=== PATIENT | female | born 1940 | race Caucasian/White ===

== ENCOUNTER → 2018-09-17 14:34 | Emergency (ER) | payer MEDICARE ==
[~2018-09-17 14:34] MED LIST: Magnesium CITRATE* 300 ML BTL ONE; Magnesium CITRATE* 300 ML BTL PO ONE; Sodium Phosphate ADULT ENEMA* 118 ml bottle ONE; Sodium Phosphate ADULT ENEMA* 118 ml bottle PR ONE
--- NOTE | 2018-09-17 17:47 | ED ---
Abdominal Pain/Female - HPI Summary HPI Summary: This patient is a 77 year old F presenting to [facility] with a chief complaint of ABD cramping for the last 10 days. The patient rates the pain 10/10 in severity. Symptoms alleviated by nothing. Patient reports inability to make BM. Patient denies vomiting. She is able to pass gas. Hx of IBS took Imodium 10 days ago, sx since. She has been taking laxative, Senna without relief. - History of Current Complaint Chief Complaint: EDAbdPain Stated Complaint: ABDOMINAL CRAMPS Time Seen by Provider: 09/17/18 17:01 Hx Obtained From: Patient Onset/Duration: Lasting Days - 10, Still Present Timing: Days - 10 Severity Initially: Mild Severity Currently: Severe Pain Intensity: 10 Pain Scale Used: 0-10 Numeric Location: Diffuse Radiates: No Character: Cramping Alleviating Factor(s): Nothing Associated Signs and Symptoms: Positive: Other: - inability to make BM. Negative: Fever, Vomiting Allergies/Adverse Reactions: Allergies Allergy/AdvReac Type Severity Reaction Status Date / Time MS Clarithromycin Allergy Wheezing Verified 09/17/18 14:35 [From Biaxin] MS Ramipril [From Altace] Allergy Difficulty Verified 09/17/18 14:35 Breathing PMH/Surg Hx/FS Hx/Imm Hx Endocrine/Hematology History: Denies: Hx Diabetes Cardiovascular History: Reports: Hx Hypertension - ON MEDICATION FOR, Other Cardiovascular Problems/Disorders - ARTERIAL PREMATURE CONTRACTIONS Denies: Hx Pacemaker/ICD Respiratory History: Denies: Hx Asthma History: Reports: Other Problems/Disorders - URINARY FREQUENCY Musculoskeletal History: Reports: Hx Arthritis - KNEES AND BACK Sensory History: Reports: Hx Cataracts, Hx Contacts or Glasses - READING Denies: Hx Hearing Aid Opthamlomology History: Reports: Hx Cataracts, Hx Contacts or Glasses - READING Psychiatric History: Reports: Hx Depression - ON MEDS Denies: Hx Panic Disorder - Cancer History Hx Chemotherapy: No Hx Radiation Therapy: No - Surgical History Surgery Procedure, Year, and Place: BLADDER SURGERY FOR INCONTINENCE. COLONOSCOPY. LEFT WRIST SURGERY- [facility] [place] Hx Anesthesia Reactions: No - Immunization History Immunizations Up to Date: Yes Infectious Disease History: No Infectious Disease History: Denies: Traveled Outside the [place] in Last 30 Days - Family History Known Family History: Negative: Respiratory Disease, Seizure Disorder - Social History Alcohol Use: None Substance Use Type: Reports: None Smoking Status (MU): Never Smoked Tobacco Review of Systems Negative: Fever, Chills Negative: Erythema Negative: Sore Throat Negative: Chest Pain Negative: Shortness Of Breath, Cough Gastrointestinal: Other - cannot make BM Positive: Abdominal Pain. Negative: Vomiting, Nausea Negative: dysuria, hematuria Negative: Myalgia, Edema Negative: Rash Neurological: Negative - dizziness All Other Systems Reviewed And Are Negative: Yes Physical Exam - Summary Physical Exam Summary: Constitutional: Well-developed, Well-nourished, Alert. (-) Distressed Skin: Warm, Dry HENT: Normocephalic; Atraumatic Eyes: Conjunctiva normal Neck: Musculoskeletal ROM normal neck. (-) JVD, (-) Stridor, (-) Tracheal deviation Cardio: Rhythm regular, rate normal, Heart sounds normal; Intact distal pulses; The pedal pulses are 2+ and symmetric. Radial pulses are 2+ and symmetric. (-) Murmur Pulmonary/Chest wall: Effort normal. (-) Respiratory distress, (-) Wheezes, (-) Rales Abd: Soft, (-) epigastric tenderness, (-) Distension, (-) Guarding, (-) Rebound Musculoskeletal: (-) Edema Lymph: (-) Cervical adenopathy Neuro: Alert, Oriented x3 Psych: Mood and affect Normal Triage Information Reviewed: Yes Vital Signs On Initial Exam: Initial Vitals Temp Pulse Resp BP Pulse Ox 98.2 F 84 20 176/70 97 09/17/18 14:35 09/17/18 14:35 09/17/18 14:35 09/17/18 14:35 09/17/18 14:35 Vital Signs Reviewed: Yes Diagnostics - Vital Signs Vital Signs Temp Pulse Resp BP Pulse Ox 09/17/18 16:33 91 09/17/18 16:29 82 22 146/61 87 09/17/18 14:35 98.2 F 84 20 176/70 97 - Laboratory Lab Statement: Any lab studies that have been ordered have been reviewed, and results considered in the medical decision making process. Abdominal Pain Fem Course/Dx - Course Course Of Treatment: This patient is a 77 year old F presenting to [facility] with a chief complaint of ABD cramping for the last 10 days. The patient rates the pain 10/10 in severity. Symptoms alleviated by nothing. Patient reports inability to make BM. Patient denies vomiting. She is able to pass gas. Hx of IBS took Imodium 10 days ago, sx since. She has been taking laxative, Senna without relief. There is no signs of bowel obstruction. Dx constipation. Patient will be discharged with and follow up from PCP. The patient is agreeable with this plan. - Diagnoses Provider Diagnoses: Constipation Discharge - Sign-Out/Discharge Documenting (check all that apply): Patient Departure - Discharge Plan Condition: Stable Disposition: HOME Patient Education Materials: Constipation (ED), High Fiber Diet (ED) Referrals: Davis Middleton MD [Primary Care Provider] - 2 Days ( ) Additional Instructions: RETURN TO THE EMERGENCY DEPARTMENT FOR CHANGING OR WORSENING SYMPTOMS - Attestation Statements Document Initiated by Scribe: Yes Documenting Scribe: Angel Hodge Provider For Whom Scribe is Documenting (Include Credential): Bert Carey MD Scribe Attestation: Angel Mckeon, scribed for Bert Carey MD on 09/17/18 at 1753.
[2018-09-17 18:09] VITALS: BP 159/78
== END | disposition home or self-care (01) ==
LOC: ED 14:34
DX: K59.00 Constipation, unspecified (principal); I10 Essential (primary) hypertension; F32.9 Major depressive disorder, single episode, unspecified; I49.1 Atrial premature depolarization
CPT/HCPCS: 99282; A9270-GY

== ENCOUNTER 2019-02-21 04:50 | Emergency (ER) | payer MEDICARE ==
[2019-02-21] MEDS ORDERED: Cocaine 4% TOPICAL* 4 ML TOP.SOLN LEFT NARE ONE (05:15)
--- NOTE | 2019-02-21 05:19 | ED ---
Throat Pain/Nasal Congestion - HPI Summary HPI Summary: This patient is a 78 year old F presenting to [facility] with a chief complaint of epistaxis when she blows her nose for the past two weeks that has significantly worsened today with more blood. She reports bleeding from the left nostril. Patient has no other complaints at this time. - History of Current Complaint Chief Complaint: EDEpistaxis Time Seen by Provider: 02/21/19 05:11 Hx Obtained From: Patient Onset/Duration: Lasting Weeks, Worse Since - today Severity: Mild Cough: None - Allergies/Home Medications Allergies/Adverse Reactions: Allergies Allergy/AdvReac Type Severity Reaction Status Date / Time clarithromycin Allergy Severe Wheezing Verified 02/21/19 05:00 ramipril Allergy Severe Difficulty Verified 02/21/19 05:00 Breathing Home Medications: Home Medications Atenolol TAB* [Tenormin TAB* 50 MG] 100 mg PO BEDTIME 02/21/19 [History Confirmed 02/21/19] Atorvastatin* 10 mg PO DAILY 02/21/19 [History Confirmed 02/21/19] Oxybutynin TAB* [Ditropan TAB*] 5 mg PO DAILY 02/21/19 [History Confirmed ] glipiZIDE TAB* [Glucotrol TAB*] 5 mg PO DAILY 02/21/19 [History Confirmed ] PMH/Surg Hx/FS Hx/Imm Hx Endocrine/Hematology History: Denies: Hx Diabetes Cardiovascular History: Reports: Hx Hypertension - ON MEDICATION FOR, Other Cardiovascular Problems/Disorders - ARTERIAL PREMATURE CONTRACTIONS Denies: Hx Pacemaker/ICD Respiratory History: Denies: Hx Asthma History: Reports: Other Problems/Disorders - URINARY FREQUENCY Musculoskeletal History: Reports: Hx Arthritis - KNEES AND BACK Sensory History: Reports: Hx Cataracts, Hx Contacts or Glasses - READING Denies: Hx Hearing Aid Opthamlomology History: Reports: Hx Cataracts, Hx Contacts or Glasses - READING Psychiatric History: Reports: Hx Depression - ON MEDS Denies: Hx Panic Disorder - Cancer History Hx Chemotherapy: No Hx Radiation Therapy: No - Surgical History Surgery Procedure, Year, and Place: BLADDER SURGERY FOR INCONTINENCE. COLONOSCOPY. LEFT WRIST SURGERY- [facility] Hx Anesthesia Reactions: No Infectious Disease History: No Infectious Disease History: Denies: Traveled Outside the [place] in Last 30 Days - Family History Known Family History: Negative: Respiratory Disease, Seizure Disorder - Social History Alcohol Use: None Substance Use Type: Reports: None Smoking Status (MU): Never Smoked Tobacco Review of Systems Constitutional: Negative Positive: Epistaxis All Other Systems Reviewed And Are Negative: Yes Physical Exam - Summary Physical Exam Summary: Appearance: Well-appearing, Well-nourished, lying in bed comfortable Skin: Warm, dry, no obvious rash Eyes: sclera anicteric, no conjunctival pallor ENT: mucous membranes moist, fresh clots in left nare but no active bleeding Neck: deferred Respiratory: No signs of respiratory distress Cardiovascular: Appears well perfused, pulses are nml Abdomen: deferred Musculoskeletal: Moving all 4 extremities without obvious discomfort Neurological: Awake and alert, mentation is normal, speech is fluent and appropriate Psychiatric: affect is normal, does not appear anxious or depressed Triage Information Reviewed: Yes Vital Signs On Initial Exam: Initial Vitals Temp Pulse Resp BP Pulse Ox 97.7 F 68 15 182/78 95 02/21/19 04:57 02/21/19 04:57 02/21/19 04:57 02/21/19 04:57 02/21/19 04:57 Vital Signs Reviewed: Yes Procedures - Procedure Summary Procedure Summary: The left nare was cleared of clots by blowing the nose. It was then packed with cocaine soaked cotton ball. A possible source of the bleeding was identified on the anterior septum and cauterized with silver nitrate. Diagnostics - Vital Signs Vital Signs Temp Pulse Resp BP Pulse Ox 02/21/19 04:57 97.7 F 68 15 182/78 95 - Laboratory Lab Statement: Any lab studies that have been ordered have been reviewed, and results considered in the medical decision making process. EENT Course/Dx - Course Course Of Treatment: 78 year old F presenting with epistaxis when she blows her nose for the past two weeks that has significantly worsened today with more blood. She reports bleeding from the left nostril.Fresh clots in left nare visualized but no active bleeding. The left nare was cleared of clots by blowing the nose. It was then packed with cocaine soaked cotton ball. A possible source of the bleeding was identified on the anterior septum and cauterized with silver nitrate. Patient is instructed to avoid blowing nose and to not take her ASA for three days. Instructed to follow up with Dr. Bae if bleeding occurs. - Diagnoses Provider Diagnoses: Acute anterior epistaxis Discharge - Sign-Out/Discharge Documenting (check all that apply): Patient Departure - discharge Patient Received Moderate/Deep Sedation with Procedure: No - Discharge Plan Condition: Good Disposition: HOME Patient Education Materials: Nosebleed (ED) Referrals: Marty Bae MD [Medical Doctor] - Additional Instructions: If the bleeding persists despite what I did tonight, you should see Dr. Bae in the office so he can find the source of the bleeding and take care of it. Hold your aspirin for the next 3 days to allow healing, and try not to blow your nose, at least on the left side. - Billing Disposition and Condition Condition: GOOD Disposition: Home - Attestation Statements Document Initiated by Ismael: Yes Documenting Scribe: Anabela Cordoba Provider For Whom Ismael is Documenting (Include Credential): Vijay Schneider MD Scribe Attestation: Anabela Mckeon, scribed for Vijay Schneider MD on 02/24/19 at 1841. Scribe Documentation Reviewed: Yes Provider Attestation: The documentation as recorded by the Anabela sandy accurately reflects the service I personally performed and the decisions made by me, Vijay Schneider MD Status of Scribe Document: Viewed
[2019-02-21] MEDS ORDERED: Silver Nitrate/Potassium Nitr* 1 EA STICK ONE (05:52)
[2019-02-21 06:16] VITALS: BP 166/72
== END 2019-02-21 06:23 | disposition home or self-care (01) ==
LOC: ED 04:50
DX: R04.0 Epistaxis (principal); I10 Essential (primary) hypertension; Z88.1 Allergy status to other antibiotic agents; Z88.8 Allergy status to other drugs, medicaments and biological substances; F32.9 Major depressive disorder, single episode, unspecified
CPT/HCPCS: 30901; 99282; A9270-GY

== ENCOUNTER 2019-09-21 15:44 | Emergency (ER) | payer MEDICARE ==
--- OUTSIDE RECORDS SUMMARY | 2019-09-21 16:50 | XMS REPORT | Continuity of Care Document ---
:1940 External Reference #:[id number] Author Name Davis Middleton M.D. Address [address] [place] [address] Care Team Providers Name Role Phone Mat Haney - Ophthalmology Care Team Information Resource Coordinator [facility] [place] - Diagnostic Care Team Information Resource Coordinator Radiology [facility] Pre-Admission Testing - Care Team Information Resource Coordinator [phone] Clinic/Center Problems Active Problems Provider Date Hyperlipidemia Davis Middleton M.D. Onset: 01/06/2012 Obesity Davis Middleton M.D. Onset: 01/06/2012 Depressive disorder Davis Middleton M.D. Onset: 01/15/2013 Palpitations Davis Middleton M.D. Onset: 01/20/2015 Arthropathy Davis Middleton M.D. Onset: 01/20/2015 Essential hypertension Davis Middleton M.D. Onset: 01/22/2016 Type 2 diabetes mellitus Davis Middleton M.D. Onset: 11/04/2016 Mixed urinary incontinence Davis Middleton M.D. Onset: 12/07/2018 Edema Davis Middleton M.D. Onset: 03/15/2019 Social History Type Date Description Comments Sex Unknown Tobacco Use Start: Unknown Never Smoked Cigarettes ETOH Use Denies alcohol use Tobacco Use Start: Unknown Patient has never smoked Allergies, Adverse Reactions, Alerts Active Allergies Reaction Severity Comments Date Biaxin interaction with lipitor wheezing, couldnt 03/05/2011 and citalopram, also breathe allergic rx?, wheezing. couldn't breath. Azithromycin OK. Medications Active Medications SIG Qnty Indications Ordering Date Provider Verapamil HCL ER Take 1 capsule by 90caps Davis Stewart 07/26/2019 360mg mouth daily for Dima Middleton Caps ER 24HR high blood pressure Atenolol take 1 tablet by 90tabs Davis FCheryle 07/26/2019 100mg Tablets mouth every Dima Middleton morning Triamterene/Hydrochlo 2 po qd 180caps Davis F. 04/23/2019 rothiazide Dima Middleton 37.5-25mg Capsules Oxybutynin Chloride Take 1 Tablet By 30tabs Jelani De Paz, 12/07/2018 ER Mouth Every Day Dima 5mg Tablets ER 24HR as Needed Atorvastatin Calcium Take 1 Tablet By 90tabs Davis F. 01/14/2018 Mouth AT Bedtime Dima Middleton 10mg Tablets Glipizide ER Take 1 Tablet By 90tabs Davis F. 11/03/2017 2.5mg Mouth Every Day Dima Middleton Tablets ER 24HR Nystatin use as directed 30gm Kalyani Connell, 07/28/2017 190011Hadi/GM twice a day as Dima Cream needed Citalopram 1 PO qd 90tabs Davis F. 03/18/2008 Hydrobromide Dima Middleton 20mg Tablets Verapamil Sustained 1 by mouth every 90caps Davis FCheryle 09/27/2007 Release day Dima Middleton 360mg Capsules Atenolol 1 by mouth every 90caps Davis F. 05/16/2006 100mg Capsules day Dima Middleton Cozaar Take 1 Tablet By 90tabs Davis FCheryle 02/20/2006 50mg Tablets Mouth Every Day Dima Middleton Zyprexa 1 PO qd Davis FCheryle 05/25/2002 5mg Dima Middleton Calcium-Vitamin D 1 po qd Davis FCehryle Dima Middleton 500-125 Tablets Aspirin 1 po qd Davis F. 81mg Tablets DR Kane M.D. History Medications Lubricant Eye Drops Instill 2 drops 15ml Davis FCheryle Middleton, 03/15/2019 - into affected eye Dima 07/26/2019 0.4-0.3% Solution hourly as needed Immunizations CPT Code Status Date Vaccine Lot # [id number] Given 08/06/2018 High-Dose, Influenza Virus Vacccine-fluzone 65 and older [id number] Given 07/22/2016 Zostivax 92222 Given 07/22/2016 High-Dose, Influenza Virus Vacccine-fluzone 65 and older 92376 Given 09/14/2015 High-Dose, Influenza Virus Vacccine-fluzone 65 and older 92770 Given 07/24/2015 Pneumococcal Conjugate Vacc-13 [id number] 86324 Given 08/20/2012 High-Dose, Influenza Virus Vacccine-fluzone 65 [id number] and older 97394 Given 07/13/2012 Tdap Tetanus, W Pertussis [id number] 23422 Given 09/08/2010 DO Not Use Split Influenza Virus Vaccine [id number] 05607 Given 12/16/2008 Pneumococcal Immunization [id number] 23346 Given 02/17/2007 Tetanus And Diptheria Adult Preservative Free [id number] >7Yrs 04303 Given 10/02/2006 DO Not Use Split Influenza Virus Vaccine 65923 Given 10/10/2004 DO Not Use Split Influenza Virus Vaccine 74625 Given 10/01/1998 Pneumococcal Immunization Vital Signs Date Vital Result Comment 07/26/2019 3:13pm BP Systolic 120 mmHg BP Diastolic 70 mmHg Heart Rate 70 /min Body Temperature 98.2 F Height 63 inches 5'3" Weight 233.00 lb BMI (Body Mass Index) 41.3 kg/m2 03/15/2019 9:55am BP Systolic 132 mmHg BP Diastolic 64 mmHg Heart Rate 76 /min Body Temperature 97.9 F Respiratory Rate 18 /min Height 63 inches 5'3" Weight 239.00 lb BMI (Body Mass Index) 42.3 kg/m2 Results Test Date Facility Test Result H/L Range Note Laboratory test 07/26/2019 [facility](a) TSH <pending> 0.5-5.0 finding Laboratory test 07/26/2019 [facility] Hemoglobin A1c 7.1 % % High 4.1-5.7 finding (607)- - (Fma) Laboratory test 03/15/2019 [facility] Hemoglobin A1c 7.6 % High 4.1- 5.7 finding (607)- - (Fma) CBC Manual 03/15/2019 [facility] WBC 7.77 4.0-10.0 Diff-Fma (607)- - RBC 4.32 3.93-6.0 Hemoglobin (Fma/CMC/CTX) 13.2 g/dL 12.0-17.0 Hematocrit (Fma/CMC/CTX) 39.4 % 35.0-50.0 Mean Corpuscular Vol 91.2 fL 80-95 Mean Corpuscular Hemoglobin 30.6 pg 25.6-32.2 Mean Corpuscular Hemo Concen 33.5 g/dL 32.2-36.0 Platelets 155 10^3/ul Low 163-400 RDW 13.8 High 11.6-13.7 Mean Platelet Volume 11.5 fL 8.0-12.4 Neutrophil % 55 % 34.0-70.0 Band Neutrophil 5 % 1-7 Lymph% 35 % 20.0-52.0 Monocytes % 4 % Low 5.0-12.0 Eos % 1 % 0.7-7.0 Comment rbc/plts normal Comprehensive Metabolic 03/15/2019 [facility](a) Sodium 142 mEq/L 134-149 Prof Potassium 4.4 mEq/L 3.6-5.5 Chloride 102 mEq/L 94-112 Carbon Dioxide 23 mEq/L 21-32 Glucose 165 mg/dL High 70-105 1 BUN 18 mg/dL 6-26 Creatinine 0.7 mg/dL 0.6-1.4 BUN/Creat Ratio 25.7 CALC 8.0-36.0 Calcium 9.7 mg/dL 8.6-10.2 Total Protein 7.5 g/dL 6.4-8.3 Albumin 4.7 g/dL 3.8-5.5 Globulin 2.8 g/dL 2.0-4.8 A/G Ratio 1.7 CALC 0.6-2.3 Alk. Phosphatase 55 U/L 30-110 Alt (SGPT) 49 U/L High 7-35 Ast (Sgot) 58 U/L High 5-34 Total Bilirubin 0.3 mg/dL 0.2-1.3 GFR Non- >60 ml/min/1.73m^ >=60 GFR >60 ml/min/1.73m^ >=60 Lipid Profile 03/15/2019 Niraj Dawkins(a) Cholesterol 168 mg/dL 120- 200 Triglycerides 138 mg/dL 30-200 HDL Cholesterol 48 mg/dL 30-85 LDL (Calculated) 92 CALC 0-129 VLDL Cholesterol 28 mg/dL 0-50 HDL Risk Factor 3.5 CALC 0.0-4.4 Laboratory test 03/15/2019 Niraj Dawkins(fma) Free T4 0.81 ng/dL 0.75- 1.54 finding TSH 1.59 mIU/L 0.50-6.00 1 NON-FASTING Procedures Date Code Description Status 08/12/2018 [id number] Mammogram Completed 09/08/2017 [id number] Bone Mineral Density Test Completed 08/11/2017 [id number] Mammogram Completed 08/01/2016 [id number] Mammogram Completed 07/31/2015 [id number] Mammogram Completed 07/29/2014 [id number] Mammogram Completed 02/14/2014 [id number] Colonoscopy Completed 07/28/2013 [id number] Mammogram Completed 07/21/2012 [id number] Mammogram Completed 06/27/2011 [id number] Mammogram Completed 05/17/2009 [id number] Mammogram Completed 02/13/2009 [id number] Colonoscopy Completed 03/28/2008 [id number] Mammogram Completed 03/02/2007 [id number] Mammogram Completed 09/16/2001 [id number] Colonoscopy Completed Medical Devices Description No Information Available Encounters Type Date Location Provider Dx Diagnosis Office Visit 03/15/2019 [facility] Office Davis Stewart E11.9 Type 2 diabetes 9:50a Dima Middleton mellitus without complications E66.8 Other obesity R60.0 Localized edema I10 Essential (primary) hypertension D69.6 Thrombocytopenia, unspecified Assessments Date Code Description Provider 07/26/2019 E11.9 Type 2 diabetes mellitus without Davis Middleton M.D. complications 07/26/2019 I10 Essential (primary) hypertension Davis Middleton M.D. 07/26/2019 F32.89 Other specified depressive episodes Davis Middleton M.D. 07/26/2019 R60.0 Localized edema Davis Middleton M.D. 03/15/2019 E11.9 Type 2 diabetes mellitus without Davis Middleton M.D. complications 03/15/2019 E66.8 Other obesity Davis Middleton M.D. 03/15/2019 R60.0 Localized edema Davis Middleton M.D. 03/15/2019 I10 Essential (primary) hypertension Davis Middleton M.D. 03/15/2019 D69.6 Thrombocytopenia, unspecified Davis Middleton M.D. Plan of Treatment Future Appointment(s):01/10/2020 2:00 pm - Davis Middleton M.D. at [facility] [id number]/26/2019 - Davis Middleton M.D.E11.9 Type 2 diabetes mellitus without complicationsNew Labs:Microalb, Random (Fma/CMC/CTX), Ordered: 07/26/19Comments: We reviewed her hemoglobin A1c values over time, we'll continue present dose of [id number] Essential (primary) hypertensionComments:Blood pressure well controlled on present mjunpndxiaI81.89 Other specified depressive episodesComments:continue care with mental health , and continue Zyprexa and sqaugbmaylB51.0 Localized edemaAllNew Medication:Verapamil HCL ER 360 mg - Take 1 capsule by mouth daily for high blood pressureAtenolol 100 mg - take 1 tablet by mouth every morningComments:Medication Management Patient Understands medications she's taking? Yes No Are there Barriers to Adherence? Yes No Has the patient been asked about herbal supplements and therapies, and OTC meds? Yes NoFollow up:return for follow up in 6 months for complete physical Functional Status Description No Information Available Mental Status Description No Information Available Referrals Refer to Dr Reason for Referral Status Appt Date Mat Haney Diabetes Mellitus and Dry Eye' jw Scheduled 06/21/[address] [facility] [id number] [phone] [facility] right knee pain jw Scheduled 04/21/2019 [address] [place] [address] [phone]
--- OUTSIDE RECORDS SUMMARY | 2019-09-21 16:50 | XMS REPORT | Continuity of Care Document ---
:1940 External Reference #:[id number] Author Name Howie Stephenson, OD Address [address] [place] [address] Care Team Providers Name Role Phone Davis Middleton MD - Computer Hardware Engineer Care Team Information Principal Librarian [phone] Problems Active Problems Provider Date Presbyopia Howie Yanes O.D. 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 Onset: 08/30/2014 Lens Replaced By Other Means Howie Yanes O.D. Onset: 08/30/2014 Tear film insufficiency Howie Yanes O.D. Onset: 08/30/2014 Nuclear senile cataract Mat Haney M.D. Onset: 06/16/2014 Type 2 diabetes mellitus Onset: 03/03/2017 Social History Type Date Description Comments Sex Unknown ETOH Use Never used alcohol Tobacco Use Start: Unknown Patient has never smoked Smoking Status Reviewed: 07/29/19 Patient has never smoked Allergies, Adverse Reactions, Alerts Description No Known Drug Allergies Medications Active Medications SIG Qnty Indications Ordering Date Provider Aspir-81 once per day by Unknown 81mg Tablets mouth DR Losartan Potassium Unknown Tablets Zyprexa Unknown Tablets Atenolol Unknown Tablets Triamterene/Hydrochlo Unknown rothiazide 37.5-25mg Capsules Olanzapine Unknown 5mg Tablets Citalopram Unknown Hydrobromide 20mg Tablets Verapamil HCL ER Unknown 360mg Caps ER 24HR Atorvastatin Calcium Unknown 10mg Tablets Fluzone To Be Administered Unknown 2013-14 By Pharmacist For Injection Immunization Metformin HCL ER Davis Middleton, 500mg MD Tablets ER 24HR Immunizations Description No Information Available Vital Signs Date Vital Result Comment 06/21/2019 3:06pm Intraocular Pressure Right Eye 13 mmHg Intraocular Pressure Left Eye 13 mmHg 06/11/2018 3:33pm Intraocular Pressure Right Eye 13 mmHg Intraocular Pressure Left Eye 13 mmHg Results Description No Information Available Procedures Date Code Description Status 07/16/2019 90204 Remove Secondary Cataract, Laser (Yag) Completed 06/21/2019 64080 Eye Exam Est Intermediate Completed Medical Devices Description No Information Available Encounters Description No Information Available Assessments Date Code Description Provider 07/29/2019 Z96.1 Presence of intraocular lens Howie Stephenson, OD 07/16/2019 H26.491 Other secondary cataract, right eye Mat Haney M.D. 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
--- NOTE | 2019-09-21 19:07 | ED ---
Psychiatric Complaint - HPI Summary HPI Summary: Pt is a 78 y/o F presenting to the ED with a chief complaint of feeling down. She states she feels much less motivated in comparison to normal, and is very sad. She was supposed to go to [place] last week to visit her daughter, but she could not bring herself to go. She denies SI/HI/hallucinations or decreased appetite. - History Of Current Complaint Chief Complaint: EDMentalHealth Time Seen by Provider: 09/21/19 18:34 Hx Obtained From: Patient Onset/Duration: Gradual Onset, Lasting Days, Still Present Timing: Days Severity Initially: Moderate Severity Currently: Moderate Character: Depressed Aggravating Factor(s): Nothing Alleviating Factor(s): Nothing Associated Signs And Symptoms: Positive: Negative Has Suicidal: Denies: Thoughts Has Homicidal: Denies: Thoughts - Allergies/Home Medications Allergies/Adverse Reactions: Allergies Allergy/AdvReac Type Severity Reaction Status Date / Time clarithromycin Allergy Severe Wheezing Verified 09/21/19 16:11 ramipril Allergy Severe Difficulty Verified 09/21/19 16:11 Breathing PMH/Surg Hx/FS Hx/Imm Hx Previously Healthy: Yes Endocrine/Hematology History: Denies: Hx Diabetes Cardiovascular History: Reports: Hx Hypertension - ON MEDICATION FOR, Other Cardiovascular Problems/Disorders - ARTERIAL PREMATURE CONTRACTIONS Denies: Hx Pacemaker/ICD Respiratory History: Denies: Hx Asthma History: Reports: Other Problems/Disorders - URINARY FREQUENCY Musculoskeletal History: Reports: Hx Arthritis - KNEES AND BACK Sensory History: Reports: Hx Cataracts, Hx Contacts or Glasses - READING Denies: Hx Hearing Aid Opthamlomology History: Reports: Hx Cataracts, Hx Contacts or Glasses - READING Psychiatric History: Reports: Hx Depression - ON MEDS Denies: Hx Panic Disorder - Cancer History Hx Chemotherapy: No Hx Radiation Therapy: No - Surgical History Surgery Procedure, Year, and Place: BLADDER SURGERY FOR INCONTINENCE. COLONOSCOPY. LEFT WRIST SURGERY- [facility] [place] Hx Anesthesia Reactions: No - Immunization History Date of Influenza Vaccine: 09/09/2019 Immunizations Up to Date: Yes Infectious Disease History: No Infectious Disease History: Denies: Traveled Outside the [place] in Last 30 Days - Family History Known Family History: Negative: Respiratory Disease, Seizure Disorder - Social History Alcohol Use: None Hx Substance Use: No Substance Use Type: Reports: None Hx Tobacco Use: No Smoking Status (MU): Never Smoked Tobacco Review of Systems Negative: Other - decreased appetite Neurological: Negative - hallucinations Negative: Other - SI/HI All Other Systems Reviewed And Are Negative: Yes Physical Exam - Summary Physical Exam Summary: Constitutional: Well-developed, Well-nourished, Alert. (-) Distressed Skin: Warm, Dry HENT: Normocephalic; Atraumatic Eyes: Conjunctiva normal Neck: Musculoskeletal ROM normal neck. (-) JVD, (-) Stridor, (-) Tracheal deviation Cardio: Rhythm regular, rate normal, Heart sounds normal; Intact distal pulses; Radial pulses are 2+ and symmetric. (-) Murmur Pulmonary/Chest wall: Effort normal. (-) Respiratory distress, (-) Wheezes, (-) Rales Abd: Soft, (-) tenderness, (-) Distension, (-) Guarding, (-) Rebound Musculoskeletal: (-) Edema Lymph: (-) Cervical adenopathy Neuro: Alert, Oriented x3 Psych: Mood and affect Normal Triage Information Reviewed: Yes Vital Signs On Initial Exam: Initial Vitals Temp Pulse Resp BP Pulse Ox 97.8 F 65 20 165/82 94 09/21/19 16:06 09/21/19 16:06 09/21/19 16:06 09/21/19 16:06 09/21/19 16:06 Vital Signs Reviewed: Yes Procedures - Sedation Patient Received Moderate/Deep Sedation with Procedure: No Diagnostics - Vital Signs Vital Signs Temp Pulse Resp BP Pulse Ox 09/21/19 16:06 97.8 F 65 20 165/82 94 - Laboratory Lab Statement: Any lab studies that have been ordered have been reviewed, and results considered in the medical decision making process. Course/Dx - Course Course Of Treatment: Patient is here with worsening depressed mood over the past 2 weeks likely due to missing a trip to visit her [facility]. Patient had no reflex symptoms of depression. Patient's never had suicidal thoughts or suicidal ideation. Patient was offered to see a psychiatrist but did not want to do that. Patient really wanted her meds adjusted but was told we were not comfortable doing that here. Patient was instructed to call Dr. Silverman in the morning to try to set up a closer follow-up appointment. Patient is also encouraged to return if she had worsening depression symptoms or suicidal thoughts - Differential Dx/Clinical Impression Provider Diagnosis: Depression Discharge ED - Sign-Out/Discharge Documenting (check all that apply): Patient Departure - Discharge Plan Condition: Stable Disposition: HOME Patient Education Materials: Depression (ED) Referrals: Davis Middleton MD [Primary Care Provider] - Herrera REYES,Tammy Carrillo [Medical Doctor] - Additional Instructions: Call Dr. Wade office in the morning, say that you were seen here and recommended to see Dr. Silverman again within the next week if there are any open appointments. Come back to the emergency department with any thoughts of harming yourself or others. - Billing Disposition and Condition Condition: STABLE Disposition: Home - Attestation Statements Document Initiated by Scribe: Yes Documenting Scribe: Dayanara Alston Provider For Whom Ismael is Documenting (Include Credential): Low Suazo MD. Scribe Attestation: Dayanara Mckeon, kashmired for Low Suazo MD. on 09/21/19 at 2048. Scribe Documentation Reviewed: Yes Provider Attestation: The documentation as recorded by the [email or web address] accurately reflects the service I personally performed and the decisions made by , Low Suazo MD. Status of Scribe Document: Viewed
[2019-09-21 19:42] VITALS: BP 198/90
== END 2019-09-21 19:43 | disposition home or self-care (01) ==
LOC: ED 15:44
DX: F32.9 Major depressive disorder, single episode, unspecified (principal); I10 Essential (primary) hypertension
CPT/HCPCS: 99282

== ENCOUNTER 2021-06-09 14:20 | Inpatient (IN) ==
[2021-06-09] MEDS ORDERED: NS 0.9% 1000 ml BAG 1,000 ML IV ONE (14:26)
[2021-06-09 14:54] LABS: ABS Basophils 0.1 10^3/ul (0-0.2); ABS Eosinophils 0.1 10^3/ul (0-0.6); ABS Lymphocytes 2.6 10^3/ul (1.0-4.8); ABS Neutrophils 6.1 10^3/ul (1.5-7.7); Eosinophil % 1.1 %; Hematocrit 40 % (35-47); Hemoglobin 13.3 g/dL (12.0-16.0); Lymphocyte % 26.5 %; Mean Corpuscular HGB Conc 34 g/dL (31-36); Mean Corpuscular Hemoglobin 31 pg (27-31); Mean Corpuscular Volume 92 fL (80-97); Mean Platelet Volume 8.2 fL (7.4-10.4); Platelet Count 207 10^3/uL (150-450); Red Cell Distribution Width 14 % (10-15)
[2021-06-09 15:02] LABS: Activated Partial Thrombo Time 26.5 seconds (26.0-38.0); INR 1.07 (0.86-1.15)
[2021-06-09 15:21] LABS: Albumin 4.1 g/dL (3.2-5.2); Albumin/Globulin Ratio 1.4 (1-3); EGFR African American 57.1 (>60); EGFR Non-African American 47.2 (>60); Globulin 2.9 g/dL (2-4); HDL Cholesterol 40.9 mg/dL; Potassium 3.7 mmol/L (3.5-5.0); Total Bilirubin 0.4 mg/dL (0.2-1.0)
[2021-06-09] MEDS ORDERED: Iodixanol (CONTRAST) 320 MG/ML 100 ML SDV IV ONE (15:47)
[2021-06-09 16:01] LABS: Urine Appearance Clear; Urine Bilirubin Negative (Negative); Urine Blood Negative (Negative); Urine Color Straw; Urine Glucose Negative (Negative); Urine Ketones Negative (Negative); Urine Nitrite Negative (Negative); Urine Protein Negative (Negative); Urine Specific Gravity 1.008 (1.002-1.030); Urine Urobilinogen Negative (Negative)
[2021-06-09] MEDS ORDERED: Dextrose 50% Syringe 50 ml 25 GM/50 ML SYRINGE IV PUSH PRN (22:44)
[2021-06-10] MEDS: Heparin 5000 UNITS/ML 1 mL VIAL SUBCUT SCH ×4 (00:35→20:41)
[2021-06-10 05:07] LABS: ABS Basophils 0.1 10^3/ul (0-0.2); ABS Eosinophils 0.2 10^3/ul (0-0.6); ABS Lymphocytes 3.6 10^3/ul (1.0-4.8); ABS Monocytes 0.8 10^3/ul (0-0.8); ABS Neutrophils 4.6 10^3/ul (1.5-7.7); Eosinophil % 1.8 %; Hematocrit 37 % (35-47); Hemoglobin 12.7 g/dL (12.0-16.0); Lymphocyte % 38.5 %; Mean Corpuscular HGB Conc 34 g/dL (31-36); Mean Corpuscular Hemoglobin 31 pg (27-31); Mean Corpuscular Volume 92 fL (80-97); Mean Platelet Volume 8.1 fL (7.4-10.4); Platelet Count 182 10^3/uL (150-450); Red Blood Count 4.06 10^6 /uL (3.70-4.87); Red Cell Distribution Width 14 % (10-15); White Blood Count 9.3 10^3/uL (3.5-10.8)
[2021-06-10 05:22] LABS: Calcium 9.7 mg/dL (8.6-10.3); EGFR African American 60.9 (>60); EGFR Non-African American 50.3 (>60); HDL Cholesterol 36.3 mg/dL; Potassium 3.5 mmol/L (3.5-5.0)
[2021-06-11] MEDS: Heparin 5000 UNITS/ML 1 mL VIAL SUBCUT SCH ×3 (06:09→20:58)
[2021-06-11 06:55] LABS: ABS Basophils 0.1 10^3/ul (0-0.2); ABS Eosinophils 0.2 10^3/ul (0-0.6); ABS Lymphocytes 2.7 10^3/ul (1.0-4.8); ABS Monocytes 0.7 10^3/ul (0-0.8); ABS Neutrophils 4.1 10^3/ul (1.5-7.7); Eosinophil % 2.9 %; Hematocrit 37 % (35-47); Hemoglobin 12.9 g/dL (12.0-16.0); Lymphocyte % 34.4 %; Mean Corpuscular HGB Conc 35 g/dL (31-36); Mean Corpuscular Hemoglobin 32 pg (27-31); Mean Corpuscular Volume 91 fL (80-97); Mean Platelet Volume 8.3 fL (7.4-10.4); Nucleated Red Blood Cells % 0.1; Platelet Count 177 10^3/uL (150-450); Red Blood Count 4.08 10^6 /uL (3.70-4.87); Red Cell Distribution Width 14 % (10-15); White Blood Count 7.8 10^3/uL (3.5-10.8)
[2021-06-11 07:12] LABS: Calcium 9.7 mg/dL (8.6-10.3); EGFR African American 60.9 (>60); EGFR Non-African American 50.3 (>60); Potassium 3.7 mmol/L (3.5-5.0)
[2021-06-12] MEDS: Heparin 5000 UNITS/ML 1 mL VIAL SUBCUT SCH ×2 (05:41→13:54)
[2021-06-12 06:24] LABS: ABS Basophils 0.1 10^3/ul (0-0.2); ABS Eosinophils 0.2 10^3/ul (0-0.6); ABS Lymphocytes 2.3 10^3/ul (1.0-4.8); ABS Monocytes 0.7 10^3/ul (0-0.8); ABS Neutrophils 3.9 10^3/ul (1.5-7.7); Eosinophil % 2.5 %; Hematocrit 36 % (35-47); Hemoglobin 12.6 g/dL (12.0-16.0); Lymphocyte % 32.7 %; Mean Corpuscular HGB Conc 35 g/dL (31-36); Mean Corpuscular Hemoglobin 32 pg (27-31); Mean Corpuscular Volume 91 fL (80-97); Mean Platelet Volume 8.6 fL (7.4-10.4); Platelet Count 164 10^3/uL (150-450); Red Blood Count 3.91 10^6 /uL (3.70-4.87); Red Cell Distribution Width 14 % (10-15); White Blood Count 7.1 10^3/uL (3.5-10.8)
[2021-06-12 06:41] LABS: Calcium 9.4 mg/dL (8.6-10.3); EGFR African American 73.7 (>60); EGFR Non-African American 60.9 (>60); Potassium 3.7 mmol/L (3.5-5.0)
[2021-06-12 15:55] VITALS: BP 137/53
== END 2021-06-12 16:05 | disposition home or self-care (01) | DRG 69 ==
LOC: ED 14:20 → MEDTELE 18:38
PROVIDERS: ADMIT Internal Medicine; ATTEND Pediatrics

== ENCOUNTER 2023-10-30 17:11 | Inpatient (IN) ==
[2023-10-30 20:42] LABS: ABS Basophils 0.1 10^3/uL (0.0-0.1); ABS Eosinophils 0.1 10^3/uL (0.0-0.5); ABS Lymphocytes 3.2 10^3/uL (1.0-4.8); ABS Monocytes 0.7 10^3/uL (0.0-0.9); ABS Neutrophils 5.4 10^3/uL (1.5-7.6); ABS Nucleated RBC 0.01 10^3/ul; Eosinophil % 0.9 %; Hematocrit 35.1 % (35-45); Hemoglobin 12.1 g/dL (11.5-14.3); Lymphocyte % 33.7 %; Mean Corpuscular Hemoglobin 31.7 pg (27-33); Mean Corpuscular Hgb Conc 34.3 g/dL (31-36); Mean Corpuscular Volume 92.2 fL (80-97); Mean Platelet Volume 7.9 fL (7.5-11.2); Nucleated Red Blood Cells % 0.1 %/100WBC (0.0-0.8); Platelet Count 249 10^3/uL (150-450); Red Blood Count 3.81 10^6/uL (3.63-4.92); Red Cell Distribution Width 14.7 % (12-17); White Blood Count 9.5 10^3/uL (3.8-11.8)
[2023-10-30] MEDS ORDERED: cefTRIAXone 1 gm/50 mL D5W 1 GM/50 ML BAG IV ONE (20:53)
[2023-10-30] MEDS ORDERED: NS 0.9% 1000 ml BAG 1,000 ML IV ONE (20:53)
[2023-10-30 21:00] LABS: Albumin 3.9 g/dL (3.2-5.2); Albumin/Globulin Ratio 1.3 (1-3); C Reactive Protein 8.36 mg/L (<8.01); Calcium 10.4 mg/dL (8.6-10.3); Creatinine, Serum 1.49 mg/dL (0.51-0.95); Globulin 2.9 g/dL (2-4); Total Bilirubin 0.5 mg/dL (0.2-1.0); Total Protein 6.8 g/dL (6.4-8.9); eGFR CKD-EPI 34.4 (>60)
[2023-10-30] MEDS ORDERED: Iodixanol (CONTRAST) 320 MG/ML 100 ML SDV IV ONE (21:10)
[2023-10-30 21:22] LABS: Magnesium 1.6 mg/dL (1.9-2.7)
[2023-10-30 22:45] LABS: TSH Ultra Thyroid Stim Horm 1.42 mcIU/mL (0.34-5.60)
[2023-10-30 23:04] LABS: Urine Appearance Cloudy; Urine Bilirubin Negative (Negative); Urine Blood Negative (Negative); Urine Color Yellow; Urine Glucose Negative (Negative); Urine Ketones Negative (Negative); Urine Nitrite Negative (Negative); Urine Protein Negative (Negative); Urine Specific Gravity 1.011 (1.002-1.030); Urine Urobilinogen Negative (Negative)
[2023-10-30] MEDS ORDERED: KCL 20 MEQ/100 ML IVPREMIX 20 MEQ/100 ML BAG IV SCH (23:45)
[2023-10-30] MEDS ORDERED: Magnesium Sulfate 2 gm BAG 2 GM/50 ML BAG IVPB ONE (23:58)
[2023-10-31] MEDS: Enoxaparin 30 MG/0.3 ML SYR SUBCUT SCH ×2 (00:30→20:58)
[2023-10-31] MEDS ORDERED: Potassium Chlor 20 meq TAB.ER PO ONE ×2 (00:51→06:07)
[2023-10-31] MEDS ORDERED: NS 0.9% 1000 ml BAG 1,000 ML IV SCH ×2 (01:00→16:15)
[2023-10-31] MEDS ORDERED: Magnesium Sulfate IV 1GM/100ML 1 GM/100 ML BAG IV ONE (01:58)
[2023-10-31 05:25] LABS: ABS Basophils 0.1 10^3/uL (0.0-0.1); ABS Eosinophils 0.1 10^3/uL (0.0-0.5); ABS Lymphocytes 2.2 10^3/uL (1.0-4.8); ABS Monocytes 0.6 10^3/uL (0.0-0.9); Eosinophil % 1.4 %; Hematocrit 34.8 % (35-45); Hemoglobin 11.7 g/dL (11.5-14.3); Lymphocyte % 31.3 %; Mean Corpuscular Hemoglobin 31.5 pg (27-33); Mean Corpuscular Hgb Conc 33.7 g/dL (31-36); Mean Corpuscular Volume 93.3 fL (80-97); Platelet Count 227 10^3/uL (150-450); Red Blood Count 3.72 10^6/uL (3.63-4.92); Red Cell Distribution Width 15.2 % (12-17); White Blood Count 6.9 10^3/uL (3.8-11.8)
[2023-10-31 05:42] LABS: Calcium 9.8 mg/dL (8.6-10.3); Creatinine, Serum 1.4 mg/dL (0.51-0.95); Magnesium 2.6 mg/dL (1.9-2.7); Potassium 3.3 mmol/L (3.5-5.0); eGFR CKD-EPI 37.1 (>60)
[2023-10-31 05:53] LABS: Urine Benzodiazepine Screen None Detected (None Detect); Urine Cannabinoids Screen None Detected (None Detect); Urine Opiates Screen None Detected (None Detect)
[2023-10-31] MEDS ORDERED: NS 0.9% 1000 ml BAG 1,000 ML IV ONE (06:01)
[2023-10-31] MEDS ORDERED: Dextrose 50% Syringe 50 ml 25 GM/50 ML SYRINGE IV PUSH PRN (16:16)
[2023-11-01 07:13] LABS: Albumin 3.2 g/dL (3.2-5.2); Albumin/Globulin Ratio 1.3 (1-3); Calcium 8.7 mg/dL (8.6-10.3); Creatinine, Serum 1.07 mg/dL (0.51-0.95); Globulin 2.5 g/dL (2-4); Magnesium 1.7 mg/dL (1.9-2.7); Phosphorus 2.6 mg/dL (2.5-5.0); Total Bilirubin 0.4 mg/dL (0.2-1.0); Total Protein 5.7 g/dL (6.4-8.9); eGFR CKD-EPI 51.2 (>60)
[2023-11-01] MEDS ORDERED: Magnesium Sulfate 2 gm BAG 2 GM/50 ML BAG IVPB ONE (07:14)
[2023-11-01] MEDS ORDERED: Lactated Ringers 1000 ml BAG 1,000 ML IV ONE (17:15)
[2023-11-01] MEDS: Enoxaparin 30 MG/0.3 ML SYR SUBCUT SCH (20:58)
[2023-11-02 07:11] LABS: Hematocrit 32.6 % (35-45); Hemoglobin 11.2 g/dL (11.5-14.3); Mean Corpuscular Hemoglobin 32.1 pg (27-33); Mean Corpuscular Hgb Conc 34.5 g/dL (31-36); Mean Corpuscular Volume 93.1 fL (80-97); Mean Platelet Volume 8.2 fL (7.5-11.2); Platelet Count 189 10^3/uL (150-450); Red Cell Distribution Width 14.6 % (12-17); White Blood Count 6.9 10^3/uL (3.8-11.8)
[2023-11-02 07:25] LABS: Calcium 9.1 mg/dL (8.6-10.3); Creatinine, Serum 1.04 mg/dL (0.51-0.95); Magnesium 1.7 mg/dL (1.9-2.7); Potassium 3.8 mmol/L (3.5-5.0)
[2023-11-02] MEDS ORDERED: Magnesium Sulfate 2 gm BAG 2 GM/50 ML BAG IVPB ONE (07:37)
[2023-11-02] MEDS ORDERED: KCL 20 MEQ/100 ML IVPREMIX 20 MEQ/100 ML BAG IV ONE (11:20)
[2023-11-02] MEDS ORDERED: Dextrose 50% Syringe 50 ml 25 GM/50 ML SYRINGE IV PUSH PRN (14:04)
[2023-11-02] MEDS: Enoxaparin 30 MG/0.3 ML SYR SUBCUT SCH (20:51)
[2023-11-03 07:20] LABS: ABS Basophils 0.1 10^3/uL (0.0-0.1); ABS Eosinophils 0.2 10^3/uL (0.0-0.5); ABS Lymphocytes 2.1 10^3/uL (1.0-4.8); ABS Monocytes 0.8 10^3/uL (0.0-0.9); ABS Neutrophils 4.6 10^3/uL (1.5-7.6); Eosinophil % 2.5 %; Hematocrit 32.7 % (35-45); Hemoglobin 11.2 g/dL (11.5-14.3); Mean Corpuscular Hemoglobin 31.9 pg (27-33); Mean Corpuscular Hgb Conc 34.3 g/dL (31-36); Mean Corpuscular Volume 93.1 fL (80-97); Mean Platelet Volume 8.3 fL (7.5-11.2); Nucleated Red Blood Cells % 0.1 %/100WBC (0.0-0.8); Platelet Count 190 10^3/uL (150-450); Red Blood Count 3.51 10^6/uL (3.63-4.92); Red Cell Distribution Width 14.8 % (12-17); White Blood Count 7.7 10^3/uL (3.8-11.8)
[2023-11-03 07:37] LABS: Calcium 9.1 mg/dL (8.6-10.3); Creatinine, Serum 1.07 mg/dL (0.51-0.95); Magnesium 1.7 mg/dL (1.9-2.7); Phosphorus 3.5 mg/dL (2.5-5.0); Potassium 3.7 mmol/L (3.5-5.0); eGFR CKD-EPI 51.2 (>60)
[2023-11-03] MEDS ORDERED: Magnesium Sulfate 2 gm BAG 2 GM/50 ML BAG IVPB ONE (09:11)
[2023-11-03] MEDS ORDERED: Potassium Chloride LIQUID 20 MEQ/15 ML LIQUID PO ONE (09:26)
[2023-11-03] MEDS: Enoxaparin 30 MG/0.3 ML SYR SUBCUT SCH (20:53)
[2023-11-04 06:51] LABS: ABS Basophils 0.1 10^3/uL (0.0-0.1); ABS Eosinophils 0.1 10^3/uL (0.0-0.5); ABS Lymphocytes 2.1 10^3/uL (1.0-4.8); ABS Monocytes 0.9 10^3/uL (0.0-0.9); ABS Neutrophils 5.9 10^3/uL (1.5-7.6); ABS Nucleated RBC 0.01 10^3/ul; Eosinophil % 1.6 %; Hematocrit 30.3 % (35-45); Hemoglobin 10.5 g/dL (11.5-14.3); Lymphocyte % 23.4 %; Mean Corpuscular Hemoglobin 32.3 pg (27-33); Mean Corpuscular Hgb Conc 34.5 g/dL (31-36); Mean Corpuscular Volume 93.6 fL (80-97); Mean Platelet Volume 8.8 fL (7.5-11.2); Nucleated Red Blood Cells % 0.1 %/100WBC (0.0-0.8); Platelet Count 185 10^3/uL (150-450); Red Blood Count 3.24 10^6/uL (3.63-4.92); Red Cell Distribution Width 14.5 % (12-17); White Blood Count 9.1 10^3/uL (3.8-11.8)
[2023-11-04 07:25] LABS: Calcium 9.1 mg/dL (8.6-10.3); Creatinine, Serum 1.11 mg/dL (0.51-0.95); Magnesium 1.7 mg/dL (1.9-2.7); Potassium 3.9 mmol/L (3.5-5.0)
[2023-11-04] MEDS ORDERED: Magnesium Sulfate 2 gm BAG 2 GM/50 ML BAG IVPB ONE (09:00)
[2023-11-04] MEDS ORDERED: Potassium Chloride LIQUID 20 MEQ/15 ML LIQUID PO ONE (09:00)
[2023-11-04 13:24] LABS: Rapid COVID-19 Molecular Undetected (Undetected)
[2023-11-04] MEDS: Enoxaparin 30 MG/0.3 ML SYR SUBCUT SCH (20:26)
[2023-11-05 06:48] VITALS: BP 146/57
== END 2023-11-05 14:30 | DRG 71 ==
LOC: EDHOLD 17:11 → ED 17:11 → SUATTDRO 23:54 → SSU 10-31 15:45 → MEDTELE 11-03 17:13
PROVIDERS: ADMIT Internal Medicine; ATTEND Internal Medicine